=== PATIENT | female | born 1950 | race Caucasian/White ===

== ENCOUNTER 2017-05-03 15:35 | Emergency (ER) | payer OTHER ==
[~2017-05-03] VITALS: Ht 165.1 cm; Wt 74.8 kg
--- NOTE | ~2017-05-03 | CT16 ---
[facility] A Service of [facility] RADIOLOGY TEXT RESULTS PATIENT: DOMENICO SHAW LOCATION: SED : 54 UNIT #: [id number] AGE: [address]: Shay Joshua MD SEX: F ORDER DR: [id number] [address] [address] [id number] E MR#: [id number] Acc #: [id number] NAME: DOMENICO SHAW : 1950 SEX: F STUDY DATE/TIME: 05/03/2017 19:50 UNIT: SED ROOM: STUDY DESCRIPTION: CT Angio Chest for PE Attending Physician: Shay Joshua M.D. Ordering Physician: Yamil Godfrey M.D. Primary Care Physician: Haroon Alcocer M.D. MEDICAL IMAGING REPORT This report is preliminary unless electronic signature is present. EXAM CT angiogram of the chest with IV contrast HISTORY Shortness of air and chest pain for 1 month. TECHNIQUE IV contrast enhanced CT angiogram of the chest was performed with 3-D reconstructions. This CT exam was performed with one or more of the following radiation dose reduction techniques: automatic exposure control, adjustment of mA and/or kV according to patient size, and iterative reconstruction. FINDINGS Oval nodule in the inferolateral left upper lobe measures 2.3 cm x 1.6 cm x 1.0 cm. This is in the region of a previously demonstrated more extensive infiltrate in the left upper lobe on CT 12/07/2014. While this could be post inflammatory or post infectious, this nodule is indeterminate, and followup CT in 3 months or PET/CT should be considered. Mild emphysema. Minimal additional multifocal linear atelectasis in the right middle lobe and in the left upper lobe and lingula. Mild ground-glass infiltrates in the bilateral lower lobes. No pulmonary embolus. Normal caliber thoracic aorta and normal caliber central pulmonary arteries. No adenopathy. Healing fractures anterior right fourth and fifth ribs. IMPRESSION 1. No pulmonary embolus. 2. 2.3 cm x 1.6 cm x 1.0 cm oval nodule in the anterolateral left upper lobe. This is in the region of a more extensive infiltrate noted on CT 12/07/2014. This could be postinflammatory or postinfectious but STS. [facility] A Service of [facility] RADIOLOGY TEXT RESULTS PATIENT: DOMENICO SHAW LOCATION: [facility] [place] : 54 UNIT #: [id number] AGE: [address]: Shay Joshua MD SEX: F ORDER DR: is indeterminate and either followup CT chest in 3 months or PET/CT should be considered. 3. No active disease in the remainder of the lungs. 4. Mild emphysema in the upper lobes. Dictated by... Kee Hearn M.D. THIS IS AN ELECTRONICALLY VERIFIED REPORT Kee Hearn M.D. at 05/04/2017 2:22 PM Humberto TD: 05/04/2017 12:51 JOB #: [id number] MEDICAL IMAGING REPORT Page 1 of 1
--- NOTE | ~2017-05-03 | EKG ---
PATIENT: DOMENICO SHAW UNIT #: [id number] Ventricular Rate: 87 BPM Atrial Rate: 87 BPM P-R Interval: 128 ms QRS Duration: 76 ms Q-T Interval: 354 ms QTC Calculation(Bezet): 425 ms P Gibbon: 78 degrees Calculated R Gibbon: 56 degrees Calculated T Gibbon: 35 degrees Diagnosis Line: Normal sinus rhythm Diagnosis Line: Normal ECG Diagnosis Line: When compared with ECG of 06-DEC-2014 21:15, Diagnosis Line: No significant change was found Diagnosis Line: Confirmed by NICOLA ALDRIDGE MD ([id number]) on Diagnosis Line: 05/04/2017 3:50:24 PM INTERPRETING MD: OLY BERRY
--- NOTE | ~2017-05-03 | CR72 ---
[facility]. [facility] A Service of [facility] & [facility] RADIOLOGY TEXT RESULTS PATIENT: DOMENICO SHAW LOCATION: SED : 54 UNIT #: [id number] AGE: [address]: Shay Joshua MD SEX: F ORDER DR: [id number] [place] [id number] E MR#: [id number] Acc #: [id number] NAME: DOMENICO SHAW : 1950 SEX: F STUDY DATE/TIME: 05/03/2017 16:35 UNIT: SED ROOM: STUDY DESCRIPTION: CR Chest Single View Portable Attending Physician: Shay Joshua M.D. Ordering Physician: Yamil Godfrey M.D. Primary Care Physician: Haroon Alcocer M.D. MEDICAL IMAGING REPORT This report is preliminary unless electronic signature is present. EXAM Portable chest, 05/03/2017 HISTORY 66-year-old female with chest pain and shortness of breath for a couple of weeks. COMPARISON Chest, 12/09/2014 FINDINGS Frontal chest demonstrates clear lungs. No pleural effusion or pneumothorax. Linear subsegmental atelectasis left midlung field. Heart size and mediastinum normal. Pulmonary vasculature normal. IMPRESSION No acute cardiopulmonary findings. Dictated by... Nick Benitez M.D. THIS IS AN ELECTRONICALLY VERIFIED REPORT Nick Benitez M.D. at 05/04/2017 2:15 PM KELLY/noemi TD: 05/04/2017 11:31 JOB #: [id number] MEDICAL IMAGING REPORT Page 1 of 1
[~2017-05-03 15:35] MED LIST: ACETAMINOPHEN325 MG PO; ADVAIR 2501 DISK W/D PO; ALBUTEROL17 GM INH; AMLODIPINE BESYL5 MG PO; CARVEDILOL12.5 MG PO; CELEXA PO; CELEXA20 MG PO; COENZYME Q10100 M1 PO; COMBIVENT MININEB INH; COMBIVENT14.7 GM INH; COREG CR PO; COREG PO; COREG12.5 MG PO; CYMBALTA PO; CYMBALTA30 MG PO; DALIRESP500 MCG PO; DOMPERIDONE PO; FOLIC ACID1 MG PO; GLUCOTROL PO; HUMALOG100 U/ML; HYDROCODON-ACE1 EAC5 PO; JANUMET; JANUMET 50-1,1 UDTAB PO; JANUMET 50-501 UDTAB PO; LANTUS100 U/M1 SQ; LEVAQUIN PO; LEVAQUIN750 MG PO; LIPOIC ACID1 GM PO; LISINOPRIL-HCTZ1 T18 PO; LISINOPRIL10 MG PO; LODINE500 M1 PO; LYRICA PO; LYRICA200 MG PO; METFORMIN PO; METHOCARBAMOL500 MG PO; NORCO 10-325 TA1 TAB PO; NORCO 10/325 TA1 TAB PO; NYSTATIN100000 UNI PO; NYSTATIN5 ML PO; OMEPRAZOLE20 M2 PO; OMEPRAZOLE40 MG PO; OMNICEF300 MG PO; PHENERGAN12.5 MG PO; PHENERGAN25 M1 PO; PREDNISONE PO; PREVPAC PA1 COMB.PKG PO; PROAIR HFA8.5 GM IH; ROBAXIN PO; ROBITUSSIN-DM118 M1 PO; SPIRIVA18 MCG INH; SYMBICORT 160/4.6 GM IH; SYMBICORT IH; SYMBICORT INH; TERBINAFINE (L250 MG PO; VIBRAMYCIN100 M1 PO; VITAMIN D31000 UNIT PO; ZANAFLEX PO; ZITHROMAX PO
[2017-05-03 16:23] LABS: POC - CKMB 1.6 ng/mL (0.0-7.9); POC - TROPONIN <0.05 ng/mL (<=0.05)
[2017-05-03 16:34] LABS: BASOPHIL% 0.3 % (0-2.5); EOSINOPHIL# 0.2 X10e3 (0-0.7); EOSINOPHIL% 1.7 % (0.0-7.0); HEMATOCRIT 33.5 % (35.0-45.0); HEMOGLOBIN 11.2 gm/dL (12.0-16.0); LYMPHOCYTE# 1.9 X10e3 (1.0-3.5); MEAN CELL VOLUME 87.7 FL (83-96); MEAN CORPUSCULAR HEMOGLOBIN 29.3 PG (28-34); MEAN CORPUSCULAR HGB CONC 33.4 g/dL (30-36); MONOCYTE# 0.7 X10e3 (0-1.0); NEUTROPHIL# 6.2 X10e3 (1.5-7.1); PLATELET COUNT 223 X10e3 (140-420); RED BLOOD COUNT 3.82 X10e (3.90-5.30); RED CELL DISTRIBUTION WIDTH 15.1 % (11.0-15.5)
[2017-05-03 16:35] LABS: DIFF IND NO
[2017-05-03 16:38] LABS: INR 1.2; PROTHROMBIN TIME (PATIENT) 13.4 SECONDS (9.5-12.4)
[2017-05-03 16:45] LABS: PARTIAL THROMBOPLASTIN TIME 42.4 SECONDS (25.6-38.1)
[2017-05-03 17:20] LABS: ALBUMIN SERUM 3.6 g/dL (3.5-5.0); BILIRUBIN, DIRECT 0.3 mg/dL (0.0-0.2); BILIRUBIN,INDIRECT 0.4 mg/dL (0.0-0.9); BILIRUBIN,TOTAL 0.7 mg/dL (0.2-2.0); BUN/CREATININE RATIO 12.85; CALCIUM SERUM 8.2 mg/dL (8.4-10.2); CREATININE SERUM 0.7 mg/dL (0.6-1.4); GLOM FILT RATE Estimated 91.6 mL/min (>60); PROTEIN TOTAL SERUM 6.8 g/dL (6.0-8.3)
[2017-05-03 17:28] LABS: POTASSIUM 2.3 mmol/L (3.5-5.1)
[2017-05-03 20:25] LABS: URINE SOURCE CLEAN CATCH
[2017-05-03 20:27] LABS: URINE APPEARANCE HAZY; URINE BILIRUBIN NEG (NEG); URINE BLOOD 1+ (NEG); URINE COLOR YELLOW; URINE GLUCOSE NEG (NORM); URINE KETONE NEG (NEG); URINE LEUKOCYTE ESTERASE 3+ (NEG); URINE NITRATE NEG (NEG); URINE PH 7.5 (5-8); URINE PROTEIN NEG (NEG); URINE SPECIFIC GRAVITY <=1.005 (1.003-1.035); URINE UROBILINOGEN 0.2 MG/DL (NORM)
[2017-05-03 20:28] LABS: MICRO INDICATED? YES
[2017-05-03 20:31] LABS: CULTURE INDICATED? YES; URINE BACTERIA 1+ (NEG); URINE SQUAMOUS EPITHELIAL CELL OCCAS /[HPF]; URINE WBC 50-100 /[HPF] (0-5)
[2017-05-03] MEDS ORDERED: CIPRO PO (20:57)
[2017-05-03] MEDS ORDERED: K-TAB ER20 MEQ PO (20:59)
[2017-05-06] MEDS ORDERED: KEFLEX500 M1 PO (09:27)
== END 2017-05-03 21:08 | disposition home or self-care (01) ==
LOC: SED 15:35
PROVIDERS: Emergency Medicine
DX: R91.1 Solitary pulmonary nodule (principal); R60.0 Localized edema; E87.6 Hypokalemia; N39.0 Urinary tract infection, site not specified; Z88.7 Allergy status to serum and vaccine; Z88.8 Allergy status to other drugs, medicaments and biological substances; Z79.4 Long term (current) use of insulin; Z79.899 Other long term (current) drug therapy
CPT/HCPCS: 36415; 71010; 71275; 80048; 80076; 81003; 82553; 83880; 84484; 85025; 85610; 85730; 87086; 87088; 87186; 93005; 96374; 99285; J1200; Q9967